=== PATIENT | male | born 1990 | race Caucasian/White ===

== ENCOUNTER 2016-08-12 21:28 | Emergency (ER) | payer OTHER ==
[~2016-08-12] VITALS: Ht 172.7 cm; Wt 64.4 kg
[~2016-08-12 21:28] MED LIST: ACET-1256 PO; IBUP-1050 PO
[2016-08-12 21:40] VITALS: Ht 172.7 cm; Wt 64.4 kg
[2016-08-12 23:25] VITALS: TEMP 36.5
[2016-08-13] MEDS ORDERED: AMOX500T3 PO (00:03)
--- NOTE | 2016-08-13 00:03 | EMERGENCY ROOM VISIT NOTE ---
History First contact with patient: 22:53 Chief Complaint: FEVER Stated Complaint: FEVER,BODY ACHES, SORE THROAT History of Present Illness The patient is a 25 year old male who presents to the Emergency Room with complaints of a sore throat for the past 2 days. The patient states that he has had pain with swallowing. He states that he feels "rundown." The patient has had fevers up to 102F. He has been taking [id number] medications with some relief of this. He states that he is concerned he may have strep throat, as he has a history of frequent strep infections. He denies any headaches, nausea, cough, neck pain or abdominal pain. Review of Systems A complete 10 point review of systems was reviewed with the patient with pertinent positives and negatives as per history of present illness. All else were negative. Past Medical/Surgical History Medical Problems: (1) Asthma (2) History of anger (3) History of anxiety (4) History of depression Family History Cancer Hypertension Social History Smoking Status: Never Smoker Alcohol Use: none Marital Status: single Housing Status: lives with family Occupation Status: employed Current/Historical Medications Scheduled Amoxicillin (Amoxil), 500 MG PO TID Ibuprofen (Advil), 600 MG PO Q6H Allergies Coded Allergies: Amitriptyline (Verified Allergy, Severe, suicidal, 08/12/16) Clonazepam (Verified Allergy, Severe, Suicidal, 08/12/16) Physical Exam Vital Signs Date Time Temp Pulse Resp B/P Pulse Ox O2 Delivery O2 Flow Rate FiO2 08/13/16 00:05 80 18 124/70 98 08/12/16 23:25 36.5 88 18 135/75 98 08/12/16 21:40 36.8 90 18 129/77 99 Room Air Physical Exam VITALS: Vitals are noted on the nurse's note and reviewed by myself. Vital signs stable. GENERAL: This is a 25-year-old male, in no acute distress, nondiaphoretic, well- developed well-nourished. SKIN: The skin was without rashes. EARS: External auditory canals clear, tympanic membranes pearly pemberton without erythema or effusion bilaterally. EYES: Pupils equal round and reactive to light and accommodation. Conjunctivae without injection, sclerae without icterus. NOSE: Patent, turbinates without inflammation or discharge. MOUTH: Mucous membranes moist. Tonsils are moderately enlarged bilaterally and erythematous. No exudate present. NECK: Supple without nuchal rigidity. Mild anterior cervical lymphadenopathy. HEART: Regular rate and rhythm without murmurs gallops or rubs. LUNGS: Clear to auscultation bilaterally without wheezes, rales or rhonchi. No retractions or accessory muscle use. NEURO: Patient was alert and oriented to person place and time. Medical Decision & Procedures Medical Decision Differential diagnosis includes strep pharyngitis, viral pharyngitis, postnasal drip, among others. The patient was evaluated as above. A rapid strep was negative. However, the patient's symptoms are very consistent with strep. He has a fever as well as anterior cervical lymphadenopathy. He does report a history of strep and states that frequently, he has had negative strep tests which have positive cultures. He will be placed on amoxicillin and follow-up with his primary care provider. He verbalized understanding of my assessment and treatment plan and was discharged home in good condition. Impression Primary Impression: Acute pharyngitis Departure Information Dispostion Home / Self-Care Condition GOOD Prescriptions Amoxicillin (AMOXIL) 500 Mg Tab 500 MG PO TID for 7 Days, #21 TAB Prov: Masha Banks ., GIANFRANCO 08/13/16 Referrals No Doctor, Assigned (PCP) Patient Instructions My [facility] Additional Instructions You were prescribed amoxicillin to be taken as prescribed. This is an antibiotic. All antibiotics have the potential to cause diarrhea. Stop this medication and contact a medical provider if you were to develop any significant adverse side effects including: wheezing, shortness of breath, passing out, vomiting, or a diffuse rash. Always take antibiotics as directed and COMPLETE the ENTIRE course regardless of the improvement of your symptoms. For pain control, you can use the following ttza-ang-ctfauka medicines (if >12 yo): - Regular strength (325mg/tab) Tylenol (acetaminophen) 2 tabs every 4-6 hours as needed. Do not exceed 12 tablets in a 24 hour period. Avoid taking more than 4 grams (4000 mg) of Tylenol per day. This includes any other sources of acetaminophen you may take on a regular basis. - Regular strength (200 mg/tab) Advil (ibuprofen) 1-2 tabs every 4-6 hours as needed. Do not exceed a dose of 3200 mg per day. Follow-up with a family doctor within one week. Return to the emergency department with inability to swallow, difficulty breathing, or any other new/concerning symptoms.
[2016-08-13 00:05] VITALS: BP 124/70; PULSE 80; O2SAT 98
[2017-01-31] MEDS ORDERED: AZIT-60 PO (13:49)
== END 2016-08-13 00:29 | disposition home or self-care (01) ==
LOC: C.EDB 21:29 → C.EDC 08-13 00:29
DX: J02.9 Acute pharyngitis, unspecified (principal); J45.909 Unspecified asthma, uncomplicated; F41.9 Anxiety disorder, unspecified; F32.9 Major depressive disorder, single episode, unspecified; Z80.9 Family history of malignant neoplasm, unspecified; Z82.49 Family history of ischemic heart disease and other diseases of the circulatory system

== ENCOUNTER 2016-12-26 22:24 | Emergency (ER) | payer OTHER ==
[~2016-12-26] VITALS: Ht 172.7 cm; Wt 65.0 kg
[~2016-12-26 22:24] MED LIST changes: -ACET-1256 PO; +AMOX500T3 PO
[2016-12-26 22:27] VITALS: TEMP 36.7; Ht 172.7 cm; Wt 65.0 kg
[2016-12-26] MEDS ORDERED: AMOXICIL/CLAVU 875MG HOME PACK PO ONE (23:00)
[2016-12-27 00:28] VITALS: BP 118/61; PULSE 59; O2SAT 98
[2016-12-27] MEDS ORDERED: AMOX875T PO (00:33)
--- NOTE | 2016-12-27 03:00 | EMERGENCY ROOM VISIT NOTE ---
ED Visit Note First contact with patient: 22:48 CHIEF COMPLAINT: Finger puncture wound HISTORY OF PRESENT ILLNESS: This 26 yo patient presents to the emergency department with friend after accidentally puncturing his left thumb with the drill while trying to put up a picture. The bleeding has stopped. Denies weakness of the finger. Patient does complain of some tingling to the distal aspect of the thumb. There is no nail injury. The patient has full range of motion of the fingers. The patient rates the pain as mild and 3/10. The patient denies any other injuries. The patient's tetanus shot is up to date. REVIEW OF SYSTEMS: A 6 system review of systems was completed with positives and pertinent negatives listed in the HPI. ALLERGIES: Amitriptyline, reviewed MEDICATIONS: none PMH:Medical Problems: (1) Asthma Status: Chronic (2) History of anger Status: Chronic (3) History of anxiety Status: Chronic (4) History of depression Status: Chronic SOCIAL HISTORY: no drug use PHYSICAL EXAM: Vital Signs: Reviewed Nurse's notes, vital signs stable. GENERAL : White male, in no acute distress, well developed, well nourished. SKIN: There is a 2 mm puncture wound to the thumb pad of the left thumb that appears clean . The edges do not gape apart with traction. There is no foreign material in the wound and it looks clean. There is no bleeding. No deep structures such as tendons, bones, or significant blood vessels are seen in the base of the wound. Extension and flexion of the finger is full and strong. Full range of motion of the wrist and other fingers. Capillary refill less than 2 seconds. Patient had subjective decreased sensation to the tip of the left thumb pad. The rest of the fingers had Normal sensation to light and sharp touch. EMERGENCY DEPARTMENT COURSE: I examined the patient. The area was cleaned with sterile saline and dressed with bacitracin ointment and bandage. Thumb x- ray showed no foreign body or fracture per my interpretation. Patient was started on antibiotics for the dirty puncture wound. He is advised follow-up with orthopedics for the subjective decrease feeling to the distal aspect of the thumb or here in the ER sooner for severe pain, numbness, tingling, worsening signs or symptoms or as needed. The patient was discharged home in good condition. DIAGNOSIS: Left thumb puncture wound with subjective decreased sensation to the distal aspect of the thumb DISCHARGE INSTRUCTIONS & TREATMENT: As below Problem List Medical Problems: (1) Asthma Status: Chronic (2) History of anger Status: Chronic (3) History of anxiety Status: Chronic (4) History of depression Status: Chronic Current/Historical Medications Scheduled Amoxicillin & Pot Clavulanate (Augmentin 875-125 mg), 1 TAB PO BID Ibuprofen (Advil), 600 MG PO Q6H Allergies Coded Allergies: Amitriptyline (Verified Allergy, Severe, suicidal, 12/26/16) Clonazepam (Verified Allergy, Severe, Suicidal, 12/26/16) Vital Signs Date Time Temp Pulse Resp B/P (MAP) Pulse Ox O2 Delivery O2 Flow Rate FiO2 12/27/16 00:28 59 18 118/61 98 Room Air 12/26/16 22:27 36.7 66 16 135/82 97 Room Air Medications Administered Medications (Trade) Dose Ordered Sig/Maribell Route Start Time Stop Time Status Last Admin Dose Admin Amoxicillin/ Clavulanate Potassium (Augmentin 875MG Home Pack) 1 homepack UD ONCE PO 12/26/16 23:00 12/26/16 23:01 DC 12/27/16 00:27 1 HOMEPACK Departure Information Impression Primary Impression: Puncture wound of finger of left hand Dispostion Home / Self-Care Condition GOOD Prescriptions Amoxicillin & Pot Clavulanate (Augmentin 875-125 mg) 1 Tab Tab 1 TAB PO BID for 9 Days, #18 TAB Prov: Cathy Baltazar, GIANFRANCO 12/27/16 Referrals Tru Marrufo MD Forms WORK / SCHOOL INSTRUCTIONS, HOME CARE DOCUMENTATION FORM, IMPORTANT VISIT INFORMATION Patient Instructions [facility], ED Wound Puncture General Additional Instructions Antibiotic ointment and bandage to the areas until healed. Follow up with family doctor or return for any signs of infection (increasing redness, swelling , drainage, or fever). Keep covered when in sun until fully healed then SPF 50 or higher until scar healed. Amoxicillin Clavulanate (Augmentin) 875mg: Take one pill twice daily for 10 days for your infection. All antibiotics can cause diarrhea. If this occurs and you feel worse or it does not resolve in 1-2 days follow up with your doctor or return to the Emergency Department as this could be signs of serious underlying problems. Any medication can cause an allergic reaction, stop the pills immediately and return to the ER for rash, hives, breathing difficulties, or swelling. Ibuprofen(Motrin, Advil) may be used for fever or pain. Use 600mg every six hours as needed. Take with food. Avoid using more than 2400mg in a 24 hour period. Do not use 2400mg per day for more than three consecutive days without physician direction. Prolonged inappropriate use can lead to stomach upset or ulcers. (AND/OR) Acetaminophen(Tylenol) may be used for fever or pain. Use 1000mg every six hours as needed. Avoid using more than 3000mg in a 24 hour period. Rest and drink plenty of fluids. Continue current medications. Return to the ER for severe pain, persistent fevers, spreading redness, or any worsening of your condition. Follow up with hand specialist within 2-3 days for a recheck of the current condition.
--- NOTE | 2016-12-27 06:17 | DIAGNOSTIC IMAGING REPORT ---
LEFT FINGER(S) MIN 2 VIEWS ROUTINE CLINICAL HISTORY: left thumb injury , COMPARISON: None. DISCUSSION: The bones and joint spaces appear intact. There is no evidence of fracture, dislocation or bony disease. There is no evidence for soft tissue swelling. IMPRESSION: Negative study. The above report was generated using voice recognition software. It may contain grammatical, syntax or spelling errors. Electronically signed by: Alan Mendoza M.D. 12/27/2016 6:15 AM Dictated Date/Time: 12/27/2016 6:15 AM
== END 2016-12-27 00:48 | disposition home or self-care (01) ==
LOC: C.EDB 22:25 → C.EDD 12-27 00:48
DX: S61.032A Puncture wound without foreign body of left thumb without damage to nail, initial encounter (principal); W29.8XXA Contact with other powered hand tools and household machinery, initial encounter; Y93.89 Activity, other specified; J45.909 Unspecified asthma, uncomplicated; F41.9 Anxiety disorder, unspecified; F32.9 Major depressive disorder, single episode, unspecified

== ENCOUNTER 2017-01-31 11:53 | Emergency (ER) | payer OTHER ==
[~2017-01-31] VITALS: Ht 172.7 cm; Wt 71.8 kg
[~2017-01-31 11:53] MED LIST changes: -AMOX500T3 PO
[2017-01-31 11:57] VITALS: TEMP 36.8
--- NOTE | 2017-01-31 12:40 | EMERGENCY ROOM VISIT NOTE ---
History Report prepared by Marybethibconstanza: Mary Jaimes Under the Supervision of: Dr. Jose Vargas M.D. First contact with patient: 12:28 Chief Complaint: RESPIRATORY PROBLEMS Stated Complaint: HARD TO BREATHE Nursing Triage Summary: Short of breath and anxious. Sao2 100% History of Present Illness The patient is a 26 year old male who presents to the Emergency Room with complaints of shortness of breath starting just prior to arrival. The patient went to urgent care on because he thought he had strep throat but was discharged without an antibiotic. The patient woke up Tuesday morning and felt baseline besides a sore throat and headache. On Tuesday night, he started to get chest pain. The patient reports that his chest pain has been constant and burning since and he is having a difficult time taking deep breaths. He denies any numbness or tingling in his arms. Presently, the patient denies any sore throat. The patient has a history of panic attacks. Source of History: patient Onset: just prior to arrival Position: chest Associated Symptoms: + SOB, No sorethroat, No numbness Review of Systems See HPI for pertinent positives & negatives. A total of 10 systems reviewed and were otherwise negative. Past Medical & Surgical Medical Problems: (1) Asthma (2) History of anger (3) History of anxiety (4) History of depression Family History Cancer Hypertension Social History Smoking Status: Never Smoker Alcohol Use: none Marital Status: single Housing Status: lives with family Occupation Status: employed Current/Historical Medications Scheduled Azithromycin (Zithromax), 250 MG PO DAILY Ibuprofen (Advil), 600 MG PO Q6H Allergies Coded Allergies: Amitriptyline (Verified Allergy, Severe, suicidal, 01/31/17) Clonazepam (Verified Allergy, Severe, Suicidal, 01/31/17) Physical Exam Vital Signs Date Time Temp Pulse Resp B/P (MAP) Pulse Ox O2 Delivery O2 Flow Rate FiO2 01/31/17 14:03 58 18 117/62 100 01/31/17 13:15 100 01/31/17 13:15 58 18 117/62 100 Room Air 01/31/17 13:11 59 01/31/17 13:11 100 Room Air 01/31/17 12:02 100 Room Air 01/31/17 11:57 36.8 82 20 149/82 99 Room Air Physical Exam GENERAL: Patient is a healthy-appearing well-nourished male. Pacing around the room wont sit down. HEAD: Normocephalic atraumatic EYES: Ocular movements intact pupils equal and react to light OROPHARYNX mucous membranes are moist no exudates present no erythema or edema present NECK: Supple no nuchal rigidity CHEST: Good equal expansion LUNGS: Clear and equal to auscultation CARDIAC: Normal S1 and S2 ABDOMEN: Soft nontender no guarding BACK: No CVA tenderness EXTREMITIES: No pain upon palpation normal muscle strength in all groups no clubbing cyanosis or edema NEURO: Patient is following commands and answering questions appropriately. Alert and oriented x3 Cranial Nerves 2-12 grossly intact Medical Decision & Procedures ER Provider Diagnostic Interpretation: Radiology results as stated below per my review and radiologist interpretation: CHEST ONE VIEW PORTABLE FINDINGS: The cardiac and mediastinal contours are normal. There is no evidence of focal pulmonary consolidation. There is no evidence of failure. No pleural effusions are visualized.[ IMPRESSION: No active disease in the chest. Electronically signed by: Antoine Esquivel M.D. Laboratory Results 01/31/17 12:47 Red Blood Count 4.77, Mean Corpuscular Volume 87.4, Mean Corpuscular Hemoglobin 31.4, Mean Corpuscular Hemoglobin Concent 36.0, Mean Platelet Volume 10.5, Neutrophils (%) (Auto) 59.1, Lymphocytes (%) (Auto) 31.4, Monocytes (%) (Auto) 5.6, Eosinophils (%) (Auto) 3.3, Basophils (%) (Auto) 0.4, Neutrophils # (Auto) 3.37, Lymphocytes # (Auto) 1.79, Monocytes # (Auto) 0.32, Eosinophils # (Auto) 0.19, Basophils # (Auto) 0.02 01/31/17 12:47 Test 01/31/17 12:47 01/31/17 12:52 01/31/17 12:54 White Blood Count 5.70 K/uL (4.8-10.8) Red Blood Count 4.77 M/uL (4.7-6.1) Hemoglobin 15.0 g/dL (14.0-18.0) Hematocrit 41.7 % (42-52) Mean Corpuscular Volume 87.4 fL (80-100) Mean Corpuscular Hemoglobin 31.4 pg (25-34) Mean Corpuscular Hemoglobin Concent 36.0 g/dl (32-36) Platelet Count 155 K/uL (130-400) Mean Platelet Volume 10.5 fL (7.4-10.4) Neutrophils (%) (Auto) 59.1 % Lymphocytes (%) (Auto) 31.4 % Monocytes (%) (Auto) 5.6 % Eosinophils (%) (Auto) 3.3 % Basophils (%) (Auto) 0.4 % Neutrophils # (Auto) 3.37 K/uL (1.4-6.5) Lymphocytes # (Auto) 1.79 K/uL (1.2-3.4) Monocytes # (Auto) 0.32 K/uL (0.11-0.59) Eosinophils # (Auto) 0.19 K/uL (0-0.5) Basophils # (Auto) 0.02 K/uL (0-0.2) RDW Standard Deviation 41.3 fL (36.4-46.3) RDW Coefficient of Variation 12.9 % (11.5-14.5) Immature Granulocyte % (Auto) 0.2 % Immature Granulocyte # (Auto) 0.01 K/uL (0.00-0.02) Est Creatinine Clear Calc Drug Dose 112.4 ml/min Estimated GFR () 124.6 Estimated GFR (Non- 107.5 BUN/Creatinine Ratio 16.6 (10-20) Calcium Level 9.5 mg/dl (8.5-10.1) Total Bilirubin 0.4 mg/dl (0.2-1) Aspartate Amino Transf (AST/SGOT) 16 U/L (15-37) Alanine Aminotransferase (ALT/SGPT) 24 U/L (12-78) Alkaline Phosphatase 67 U/L (45-117) Total Creatine Kinase 97 U/L (39-308) Creatine Kinase MB < 0.5 ng/ml (0.5-3.6) Creatine Kinase MB Ratio (0-3.0) Troponin I < 0.015 ng/ml (0-0.045) Total Protein 8.4 gm/dl (6.4-8.2) Albumin 4.5 gm/dl (3.4-5.0) Globulin 3.9 gm/dl (2.5-4.0) Albumin/Globulin Ratio 1.2 (0.9-2) Lyme Disease IgG Antibody NEG (NEG) Monoscreen NEG (NEG) Bedside Hemoglobin 15.6 g/dl (14.0-18.0) Bedside Hematocrit 46 % (42-52) Bedside Sodium 143 mEq/L (135-144) Bedside Potassium 3.8 mEq/L (3.3-5.0) Bedside Chloride 106 mEq/L (101-112) Bedside Total CO2 24 mEq/l (24-31) Anion Gap 18.0 mmol/L (16-25) Bedside Blood Urea Nitrogen 18 mg/dl (7-18) Bedside Creatinine 0.9 mg/dl (0.6-1.3) Bedside Glucose (other) 94 mg/dl (70-99) Bedside Ionized Calcium ([place]) 1.22 mmol/l (1.12-1.32) Bedside D-Dimer 156 ng/mlFEU (0-450) Labs reviewed by ED physician. Medications Administered Medications (Trade) Dose Ordered Sig/Maribell Route Start Time Stop Time Status Last Admin Dose Admin Albuterol (Ventolin Hfa Inhaler) 2 puffs NOW ONCE INH 01/31/17 13:45 01/31/17 13:46 DC 01/31/17 13:50 2 PUFFS Azithromycin (Zithromax Tab) 500 mg NOW STAT PO 01/31/17 13:41 01/31/17 13:43 DC 01/31/17 13:50 500 MG Albuterol/ Ipratropium (Duoneb) 3 ml NOW STAT INH 01/31/17 13:41 01/31/17 13:43 DC 01/31/17 13:50 3 ML ECG Indication: chest pain Rate (beats per minute): 69 Rhythm: normal sinus Findings: no acute ischemic change, no ectopy ED Course 1229: Past medical records reviewed. The patient was evaluated in room B10. A complete history and physical examination was performed. 1319: I updated the patient on his test results. He was unhappy with not having any findings and told me to "go ahead and fucking 302 me". 1338: I discussed the patient's test results and referred him to a cable driller for further testing. 1341: Duoneb 3 ml INH, Azithromycin 500 mg PO. 1345: Albuterol 2 puffs INH. 1350: Upon reexamination the patient is resting comfortably. I discussed results and treatment plan with the patient. He verbalizes agreement and understanding. The patient is ready for discharge. Medical Decision Differential diagnosis: Etiologies such as infections, reactive airway disease, pneumonia, pneumothorax , COPD, CHF, cardiac ischemia, pulmonary embolism, musculoskeletal, gastrointestinal, as well as others were entertained. This is a 26-year-old male who presents emergency department pacing around the room during a period of high volume and high acuity. The patient is insisting there is something wrong with his lungs as he has had shortness of breath for the past 2 days. Patient reports he has had anxiety attacks before however he has never had an anxiety attack last this long. I reassured the patient noted that he is 100% on room air however I will rule out anything life-threatening including an NE as well as PE. The patient has a normal d-dimer as well as a normal EKG as well as CK-MB and troponin. I also recommended to the patient that we try and treat his symptoms however he is adamantly refusing any medications. When I returned to the patient to tell him about is clear chest x- ray as well as his normal d-dimer the patient began becoming belligerent and began cursing at me. I again recommended we try and get his symptoms under control using medications which he again refused. The patient's cardiac enzymes are also normal. I do not feel he has an acute process going on however the patient is requesting an inhaler and asked why he didn't receive one earlier. I then pointed out to the patient that he refused prior medications when I offered them. As I do not have an acute process going on with this patient I am going to discharge him home strongly recommended he follow up with his primary care physician. Medication Reconcilliation Current Medication List: was personally reviewed by me Blood Pressure Screening Patient's blood pressure: Normal blood pressure Impression Primary Impression: Bronchitis Scribe Attestation The scribe's documentation has been prepared under my direction and personally reviewed by me in its entirety. I confirm that the note above accurately reflects all work, treatment, procedures, and medical decision making performed by me. Departure Information Dispostion Home / Self-Care Prescriptions Azithromycin (ZITHROMAX) 250 Mg Tab 250 MG PO DAILY, #4 TAB Prov: Waqar Ramos MD 01/31/17 Referrals No Doctor, Assigned (PCP) Forms HOME CARE DOCUMENTATION FORM, IMPORTANT VISIT INFORMATION, WORK / SCHOOL INSTRUCTIONS Patient Instructions My [facility] Additional Instructions Use inhaler twice every 6 hours Follow up with DR Sy's office You have been examined and treated today on an emergency basis only. This is not a substitute for, or an effort to provide, complete comprehensive medical care. It is impossible to recognize and treat all injuries or illnesses in a single emergency department visit. It is therefore important that you follow up closely with your PCP. Call as soon as possible for an appointment. Thank you for your time and consideration. I look forward to speaking with you again soon. Please don't hesitate to call us if you have any questions.
--- NOTE | 2017-01-31 12:58 | DIAGNOSTIC IMAGING REPORT ---
CHEST ONE VIEW PORTABLE CLINICAL HISTORY: Shortness of breath COMPARISON STUDY: 01/09/2013 FINDINGS: The cardiac and mediastinal contours are normal. There is no evidence of focal pulmonary consolidation. There is no evidence of failure. No pleural effusions are visualized.[ IMPRESSION: No active disease in the chest. Electronically signed by: Antoine Esquivel M.D. 01/31/2017 12:56 PM Dictated Date/Time: 01/31/2017 12:56 PM
[2017-01-31 13:02] LABS: BASO % 0.4 %; BASO ABS # 0.02 K/uL (0-0.2); COMPLETE YES; EOS % 3.3 %; HEMATOCRIT 41.7 % (42-52); IG% 0.2 %; LYMPH % 31.4 %; LYMPH ABS # 1.79 K/uL (1.2-3.4); MEAN CELL VOLUME 87.4 fL (80-100); MEAN CORPUSCULAR HEMOGLOBIN 31.4 pg (25-34); MEAN PLATELET VOLUME 10.5 fL (7.4-10.4); MONO % 5.6 %; NEUT % 59.1 %; PLATELET COUNT 155 K/uL (130-400); RED BLOOD COUNT 4.77 M/uL (4.7-6.1)
[2017-01-31 13:05] LABS: ISTAT CREATININE 0.9 mg/dl (0.6-1.3); ISTAT HEMOGLOBIN 15.6 g/dl (14.0-18.0); ISTAT IONIZED CALCIUM 1.22 mmol/l (1.12-1.32)
[2017-01-31 13:15] VITALS: O2SAT 100; Ht 172.7 cm; Wt 71.8 kg
[2017-01-31 13:24] LABS: ALT/SGPT 24 U/L (12-78); BLOOD UREA NITROGEN 16 mg/dl (7-18); BUN/CREATININE RATIO 16.6 (10-20); CALCIUM 9.5 mg/dl (8.5-10.1); CARBON DIOXIDE 26 mmol/L (21-32); CHLORIDE 107 mmol/L (98-107); CREATININE 0.98 mg/dl (0.60-1.40); GLUCOSE 92 mg/dl (70-99); POTASSIUM 3.7 mmol/L (3.5-5.1); SODIUM 140 mmol/L (136-145)
[2017-01-31 13:33] LABS: ALB/GLOB RATIO 1.2 (0.9-2); ALKALINE PHOSPHATASE 67 U/L (45-117); AST/SGOT 16 U/L (15-37)
[2017-01-31] MEDS ORDERED: AZITHROMYCIN 250 MG TAB PO STA (13:41)
[2017-01-31] MEDS ORDERED: ALBUT/IPRATROP 3MG/0.5MG NEB 3 ML VIAL INH STA (13:41)
[2017-01-31] MEDS ORDERED: ALBUTEROL HFA 8 GM INHALER INH ONE (13:45)
[2017-01-31] MEDS ORDERED: AZIT250T5 PO (13:49)
[2017-01-31 13:54] LABS: LYME DISEASE AB IGG NEG (NEG)
[2017-01-31 13:56] LABS: LYME DISEASE AB IGM EQUIVOCAL (NEG)
[2017-01-31 14:03] VITALS: BP 117/62; PULSE 58; O2SAT 100
[2017-02-02 13:10] LABS: EBV EARLY ANTIGEN AB <9.00 U/ML
[2017-02-03 16:28] LABS: 18KDIGG BAND NONREACTIVE (NONREACTIVE); 23KDIGG BAND NONREACTIVE (NONREACTIVE); 23KDIGM BAND NONREACTIVE (NONREACTIVE); 28KDIGG BAND NONREACTIVE (NONREACTIVE); 30KDIGG BAND NONREACTIVE (NONREACTIVE); 39KDIGG BAND NONREACTIVE (NONREACTIVE); 39KDIGM BAND NONREACTIVE (NONREACTIVE); 41KDIGG BAND REACTIVE (NONREACTIVE); 41KDIGM BAND NONREACTIVE (NONREACTIVE); 45KDIGG BAND NONREACTIVE (NONREACTIVE); 58KDIGG BAND NONREACTIVE (NONREACTIVE); 66KDIGG BAND NONREACTIVE (NONREACTIVE); 93KDIGG BAND NONREACTIVE (NONREACTIVE)
== END 2017-01-31 14:03 | disposition home or self-care (01) ==
LOC: C.EDB 11:55
DX: J40 Bronchitis, not specified as acute or chronic (principal); J45.909 Unspecified asthma, uncomplicated; F32.9 Major depressive disorder, single episode, unspecified; F41.9 Anxiety disorder, unspecified; Z88.8 Allergy status to other drugs, medicaments and biological substances; Z80.9 Family history of malignant neoplasm, unspecified; Z82.49 Family history of ischemic heart disease and other diseases of the circulatory system

== ENCOUNTER 2017-04-27 12:15 | Emergency (ER) | payer OTHER ==
[~2017-04-27] VITALS: Ht 172.7 cm; Wt 63.0 kg
[2017-04-27 12:30] VITALS: Ht 172.7 cm; Wt 63.0 kg
--- NOTE | 2017-04-27 13:52 | DIAGNOSTIC IMAGING REPORT ---
CHEST ONE VIEW PORTABLE CLINICAL HISTORY: cough dyspnea COMPARISON STUDY: 01/31/2017 FINDINGS: The bones soft tissues and hemidiaphragms are normal. The cardiomediastinal silhouette is normal. The lungs are clear. The pulmonary vasculature is normal. IMPRESSION: Negative chest. The above report was generated using voice recognition software. It may contain grammatical, syntax or spelling errors. Electronically signed by: Alan Mendoza M.D. 04/27/2017 1:51 PM Dictated Date/Time: 04/27/2017 1:50 PM
[2017-04-27 14:10] LABS: INFLUENZA B ANTIGEN POS for Influ B (NEG)
[2017-04-27] MEDS ORDERED: ACETAMINOPHEN 500 MG TAB PO ONE (14:47)
[2017-04-27 14:49] VITALS: BP 113/74; PULSE 96; TEMP 38; O2SAT 97
--- NOTE | 2017-04-27 19:06 | EMERGENCY ROOM VISIT NOTE ---
History Report prepared by Jerrod: Mikala Stone Under the Supervision of: Dr. Rodrigue Osman D.O. First contact with patient: 12:58 Chief Complaint: ILLNESS Stated Complaint: VERY SICK History of Present Illness The patient is a 26 year old male who presents to the Emergency Room with complaints of persistent flu-like symptoms since April 22, 2017. At this time , the patient developed body aches, a fever of 103, and a sore throat. He went to an urgent care on Sunday, April 23, 2017 and was told he had an infection and was prescribed antibiotics. He notes that his symptoms are worsening. He notes difficulty swallowing since yesterday and a cough that developed today. He currently rates his pain a 7/10 in severity. He states that he took Ibuprofen today. He notes positive sick contacts. His brother states that he just overcome the flu around mid-March, though states their niece and friend has contracted the flu as well. He denies any underlying medical problems, though has a history of asthma. The patient's vaccinations are up-to- date. The patient denies any abdominal pain, vomiting, diarrhea, ear pain, urinary symptoms, and rashes. Source of History: patient Onset: April 22, 2017 Position: other (global ) Symptom Intensity: 710 Quality: other (flu-like symptoms) Timing: other (persistent) Associated Symptoms: + fevers, + sorethroat, + cough, No vomiting, No abdominal pain, No diarrhea, No urinary symptoms, No rash Note: He notes body aches and difficulty swallowing. He denies any ear pain. Review of Systems See HPI for pertinent positives & negatives. A total of 10 systems reviewed and were otherwise negative. Past Medical & Surgical Medical Problems: (1) Asthma (2) History of anger (3) History of anxiety (4) History of depression Family History Cancer Hypertension Social History Smoking Status: Never Smoker Smokeless Tobacco Use: No Alcohol Use: none Marital Status: single Housing Status: lives with family Occupation Status: employed Current/Historical Medications Scheduled Ibuprofen (Advil), 600 MG PO Q6H Allergies Coded Allergies: Amitriptyline (Verified Allergy, Severe, suicidal, 04/27/17) Clonazepam (Verified Allergy, Severe, Suicidal, 04/27/17) Physical Exam Vital Signs Date Time Temp Pulse Resp B/P (MAP) Pulse Ox O2 Delivery O2 Flow Rate FiO2 04/27/17 14:49 38.0 96 18 113/74 97 04/27/17 12:30 37.4 81 18 108/59 97 Physical Exam GENERAL: Sitting up in bed, alert, disheveled appearing, well nourished, no distress, non-toxic. Mask in place. Talking in full sentences. EYE EXAM: normal conjunctiva. EARS: TMs clear bilaterally. OROPHARYNX: no exudate, lips, buccal mucosa, and tongue normal and mucous membranes are moist. Posterior oropharynx with diffuse erythema. NECK: supple, no nuchal rigidity, no adenopathy, non-tender LUNGS: Faint wheezing in bilateral bases. Normal chest wall mechanics HEART: no murmurs, S1 normal and S2 normal ABDOMEN: abdomen soft, non-tender, normo-active bowel sounds, no masses, no rebound or guarding. BACK: Back is symmetrical on inspection and there is no deformity, no midline tenderness, no CVA tenderness. SKIN: no rashes and no bruising UPPER EXTREMITIES: upper extremities are grossly normal. LOWER EXTREMITIES: No pitting edema. Calves are equal and bilateral. NEURO EXAM: Normal sensorium, cranial nerves II-XII grossly intact, normal speech, no gross weakness of arms, no gross weakness of legs. Medical Decision & Procedures ER Provider Diagnostic Interpretation: Radiology results as stated below per my review and the radiologist's interpretation: CHEST ONE VIEW PORTABLE CLINICAL HISTORY: cough dyspnea COMPARISON STUDY: 01/31/2017 FINDINGS: The bones soft tissues and hemidiaphragms are normal. The cardiomediastinal silhouette is normal. The lungs are clear. The pulmonary vasculature is normal. IMPRESSION: Negative chest. The above report was generated using voice recognition software. It may contain grammatical, syntax or spelling errors. Electronically signed by: Alan Mendoza M.D. 04/27/2017 1:51 PM Dictated Date/Time: 04/27/2017 1:50 PM Laboratory Results Test 04/27/17 13:10 Influenza Type A Antigen Neg for Influ A (NEG) Influenza Type B Antigen POS for Influ B (NEG) Laboratory results per my review. Medications Administered Medications (Trade) Dose Ordered Sig/Maribell Route Start Time Stop Time Status Last Admin Dose Admin Acetaminophen (Tylenol Tab) 1,000 mg STK-MED ONCE PO 04/27/17 14:47 04/27/17 14:48 DC 04/27/17 14:49 1,000 MG ED Course ED COURSE: Vital signs were reviewed and showed normal. The patients medical record was reviewed The above diagnostic studies were performed and reviewed. ED treatments and interventions as stated above. 1302: The patient was evaluated in room C11B. A complete history and physical examination was performed. 1423: Upon reevaluation, I discussed my findings with the patient and he understands and agrees with the treatment plan. Based on the patients age, coexisting illnesses, exam and lab findings the decision to treat as an outpatient was made. The patient remained stable while under my care. The patient appeared well at the time of discharge. 1447: Ordered Tylenol 1,000 mg PO Medical Decision Differential Diagnosis includes but is not limited to dehydration, stroke, anemia, hypoglycemia, hyponatremia, hypernatremia, urinary tract infection, pneumonia, bronchitis, sepsis, gastroenteritis, additional abdominal pathology, metabolic abnormalities and infections. Patient is a 26-year-old male who presents to ER for body aches, cough, sore throat which is PRESENT since this past Tuesday. Patient is to symptoms have been gradually getting worse. Rapid strep was obtained and was negative. Influenza B was positive. Chest x-ray was unremarkable. Patient declined all other blood work. Patient was updated bedside. Due to the duration of the symptoms he was not a candidate for Tamiflu. Chest importance of continuing Tylenol and Motrin and staying hydrated.Discussed with Pt concerning signs and symptoms to watch out for. Pt was instructed to follow up with their PCP and discussed with the patient their option to return to the ED at anytime for persistent or worsening symptoms. The appropriate anticipatory guidance and out- patient management, including indications for return to the emergency department , were explained at length to the patient and understood. Medication Reconcilliation Current Medication List: was personally reviewed by me Blood Pressure Screening Patient's blood pressure: Normal blood pressure Impression Primary Impression: Influenza B Scribe Attestation The scribe's documentation has been prepared under my direction and personally reviewed by me in its entirety. I confirm that the note above accurately reflects all work, treatment, procedures, and medical decision making performed by me. Departure Information Dispostion Home / Self-Care Referrals No Doctor, Assigned (PCP) Forms HOME CARE DOCUMENTATION FORM, IMPORTANT VISIT INFORMATION, WORK / SCHOOL INSTRUCTIONS Patient Instructions ED URI Viral, My [facility] Additional Instructions Please follow up with your primary care doctor with in the next 24 hours. Any worsening of your symptoms, please return to the ED immediately. This includes any fevers greater than 100.4, worsening pain, chest pain, shortness breath, persistent nausea, vomiting, unable to eat or drink, or any other concerning signs or symptoms from your standpoint. Please take Tylenol or Motrin as needed for muscle aches and fevers.
== END 2017-04-27 14:49 | disposition home or self-care (01) ==
LOC: C.EDB 12:17 → C.EDC 14:49
DX: J10.1 Influenza due to other identified influenza virus with other respiratory manifestations (principal); J45.909 Unspecified asthma, uncomplicated; Z82.49 Family history of ischemic heart disease and other diseases of the circulatory system; Z79.1 Long term (current) use of non-steroidal anti-inflammatories (NSAID)

== ENCOUNTER 2017-11-25 10:51 | Emergency (ER) | payer SELFPAY ==
[2017-11-25] MEDS ORDERED: IBUPROFEN 800 MG TAB PO STA (11:17)
[2017-11-25] MEDS ORDERED: AMOXICILLIN 250 MG CAP PO STA (11:17)
[2017-11-25] MEDS ORDERED: AMOX500C3 PO (11:20)
[2017-11-25] MEDS ORDERED: IBUP-1451 PO (11:20)
--- NOTE | 2017-11-25 11:23 | EMERGENCY ROOM VISIT NOTE ---
ED Visit Note First contact with patient: 11:04 CHIEF COMPLAINT: Sore throat, congestion HISTORY OF PRESENT ILLNESS: This 26 year old male patient presents to the emergency department ambulatory, complaining of sore throat, congestion, runny nose, and pressure in his ears which began yesterday. The patient has taken no medications for his symptoms. They deny any other symptoms including swollen lymph nodes, cough, fever, chills, nausea, or vomiting. There is pain with swallowing and the patient is having difficulty eating. He reports feeling that the roof of his mouth is swollen and it is making it more difficult for him to breathe. 3 days ago, the patient's daughter was diagnosed with strep pharyngitis and started on antibiotics. She did have a positive strep test performed. Denies a rash. REVIEW OF SYSTEMS: A 10 system review of systems was performed with positives and pertinent negatives listed in the history of present illness. All other systems were reviewed and are negative. ALLERGIES: Amitriptyline, clonazepam MEDICATIONS: Ibuprofen, famotidine PMH: GERD, chronic throat pain SOCIAL HISTORY: Patient lives locally with family. He denies drug, alcohol, tobacco use. PHYSICAL EXAM: VITALS: Vitals are noted on the nurse's note and reviewed by myself. Vital signs stable. Pt. afebrile. GENERAL: This is a 26-year-old white male, in no acute distress, nondiaphoretic , well-developed well-nourished. SKIN: The skin was without rashes, erythema, edema, or bruising. There is no tenting of the skin. Capillary reflex less than 2 seconds. HEAD: Normocephalic atraumatic. EARS: External auditory canals clear, tympanic membranes pearly pemberton without erythema or effusion bilaterally. EYES: Pupils equal round and reactive to light and accommodation. Conjunctivae without injection, sclerae without icterus. Extraocular movements intact. NOSE: Patent, turbinates with mild inflammation or discharge. No sinus tenderness. MOUTH: Mucous membranes moist. Tonsils are not enlarged. Pharynx with erythema , but no exudate. Uvula midline. Airway patent. Tongue does not deviate. NECK: Supple without nuchal rigidity. Mild anterior cervical lymphadenopathy. No thyromegaly. Cervical spine is nontender. No JVD. HEART: Regular rate and rhythm without murmurs gallops or rubs. LUNGS: Clear to auscultation bilaterally without wheezes, rales or rhonchi. No dullness to percussion. No retractions or accessory muscle use. MUSCULOSKELETAL: No muscle atrophy, erythema, or edema noted. Full range of motion without joint tenderness in all extremities. No tenderness to palpation. Normal gait. Strength 5/5 throughout. NEURO: Patient was alert and oriented to person place and time. Normal sensation to light and sharp touch. No focal neurological deficits. EMERGENCY DEPARTMENT COURSE: The patient was seen and evaluated as above. His daughter was recently diagnosed with a positive rapid strep test 3 days ago. She is currently on antibiotics for strep pharyngitis. The patient's symptoms are consistent with acute strep pharyngitis. He will be started on antibiotics at this time. He states he has been following with Dr. Rowland for a nodule in his throat which is scheduled to be removed, so I did encourage him to follow- up with him if he is not experiencing improvement in his symptoms by Tuesday. Patient verbalized agreement and understanding. He was given his first dose of antibiotics and ibuprofen here in the emergency department. Discharge instructions reviewed, and the patient was discharged home in good condition. I attest that I have personally reviewed the patient's current medication list. Patient was found to have normal blood pressure on screening and does not require follow-up. DIFFERENTIAL DIAGNOSIS: Influenza, URI, Viral pharyngitis, Strep Pharyngitis, Jbak-Brly-Yblwe Disease, Peritonsillar abscess, tonsilitis, malignancy, and others DIAGNOSIS: Acute pharyngitis The chart was completed utilizing [employer] Speech voice recognition software. Grammatical errors, random word insertions, pronoun errors, and incomplete sentences are an occasional consequence of this system due to software limitations, ambient noise, and hardware issues. Any formal questions or concerns about the content, text, or information contained within the body of this dictation should be directly addressed to the provider for clarification. Problem List Medical Problems: (1) Asthma Status: Chronic (2) History of anger Status: Chronic (3) History of anxiety Status: Chronic (4) History of depression Status: Chronic Current/Historical Medications Scheduled Amoxicillin (Amoxil), 1,000 MG PO QD Ibuprofen (Advil), 600 MG PO Q6H Scheduled PRN Ibuprofen Tab (Motrin), 800 MG PO Q8H PRN for Pain Allergies Coded Allergies: Amitriptyline (Verified Allergy, Severe, suicidal, 11/25/17) Clonazepam (Verified Allergy, Severe, Suicidal, 11/25/17) Vital Signs Date Time Temp Pulse Resp B/P (MAP) Pulse Ox O2 Delivery O2 Flow Rate FiO2 11/25/17 11:38 36.6 83 20 118/66 100 11/25/17 11:37 83 20 118/66 100 Room Air 11/25/17 11:12 100 Room Air 11/25/17 11:00 36.6 88 20 121/66 100 Room Air Medications Administered Medications (Trade) Dose Ordered Sig/Maribell Route Start Time Stop Time Status Last Admin Dose Admin Amoxicillin (Amoxil Cap) 1,000 mg NOW STAT PO 11/25/17 11:17 11/25/17 11:19 DC 11/25/17 11:22 1,000 MG Ibuprofen (Motrin Tab) 800 mg NOW STAT PO 11/25/17 11:17 11/25/17 11:19 DC 11/25/17 11:23 800 MG Departure Information Impression Primary Impression: Acute pharyngitis Dispostion Home / Self-Care Condition GOOD Prescriptions Ibuprofen Tab (MOTRIN) 800 Mg Tab 800 MG PO Q8H Y for Pain, #30 TAB For Initial Treatment Prov: Jaymie Montanez PA-C 11/25/17 Amoxicillin (AMOXIL) 500 Mg Cap 1000 MG PO QD for 10 Days, #20 CAP Prov: Jaymie Montanez PA-C 11/25/17 Referrals Tamiko Porter PA-C (PCP) Patient Instructions ED Strep Pharyngitis Cassie Replaced By [facility] Additional Instructions You were seen and evaluated in the emergency department today for a sore throat. This is presumed to be strep, as your daughter is currently being treated for strep throat with a positive throat culture. You were prescribed amoxicillin to be taken 1000 mg once daily for 10 days. This is an antibiotic. All antibiotics have the potential to cause diarrhea. Stop this medication and contact a medical provider if you were to develop any significant adverse side effects including: wheezing, shortness of breath, passing out, vomiting, or a diffuse rash. Always take antibiotics as directed and COMPLETE the ENTIRE course regardless of the improvement of your symptoms. You were given your first dose of antibiotics here in the emergency department. Your next dose will be tomorrow morning. For your sore throat, you may use a 1:1 mixture of liquid Benadryl and liquid Maalox. Gargle and spit this mixture. It will help to soothe the throat and provide some relief. Drink warm tea with honey and lemon, as this will also help to soothe the throat. Gargle with salt water frequently. As discussed, you should take OTC Mucinex and/or Sudafed for your symptoms. Please do not exceed the recommended daily dosages. Ibuprofen(Motrin, Advil) may be used for fever or pain. Use 800mg every eight hours as needed. Take with food. Avoid using more than 2400mg in a 24 hour period. Do not use 2400mg per day for more than three consecutive days without physician direction. Prolonged inappropriate use can lead to stomach upset or ulcers. This medication will help with the swelling in your sinuses and throat. (AND/OR) Acetaminophen(Tylenol) may be used for fever or pain. Use 1000mg every six hours as needed. Avoid using more than 3000mg in a 24 hour period. For congestion, you may use Flonase OTC. Please get plenty of rest and drink plenty of fluids. Please return or follow-up with your PCP/ENT on Tuesday if you are not experiencing any improvement in your symptoms. Return to the emergency department for coughing up blood, difficulty breathing, chest pain, worsening symptoms, or for other concerns. Problem Qualifiers Primary Impression: Acute pharyngitis Pharyngitis/tonsillitis etiology: unspecified etiology Qualified Codes: J02.9 - Acute pharyngitis, unspecified
[2017-11-25 11:38] VITALS: BP 118/66; PULSE 83; TEMP 36.6; O2SAT 100
== END 2017-11-25 11:39 | disposition home or self-care (01) ==
LOC: C.EDB 10:52 → C.EDD 11:39
DX: J02.9 Acute pharyngitis, unspecified (principal); K21.9 Gastro-esophageal reflux disease without esophagitis; J45.909 Unspecified asthma, uncomplicated; G89.29 Other chronic pain; F41.9 Anxiety disorder, unspecified; F32.9 Major depressive disorder, single episode, unspecified; Z88.8 Allergy status to other drugs, medicaments and biological substances